=== PATIENT | female | born 1945 | race Caucasian/White ===

== ENCOUNTER 2017-07-05 17:17 | Emergency (ER) | payer MEDICARE ==
[2017-07-05 17:33] VITALS: BP 138/66
--- NOTE | 2017-07-05 18:02 | UC ---
Dental HPI - HPI Summary HPI Summary: pt reports that the right side of her tongue was tender this morning . Pt then ate lunch, fell asleep after luncha nd woke tieht right side of tongue swollen and tender. Denies biting or injuring tongue. Pt denies SOB or difficulty breathing - History of Current Complaint Chief Complaint: UCGI Stated Complaint: SWOLLEN TONGUE Time Seen by Provider: 07/05/17 17:50 Hx Obtained From: Patient ?: No Onset/Duration: Sudden Onset, Still Present Severity: Mild Related History: Swelling - right side of tongue - Allergies/Home Medications Allergies/Adverse Reactions: Allergies Allergy/AdvReac Type Severity Reaction Status Date / Time Adhesive Tape Allergy Intermediate Itching Verified 08/06/16 12:18 Codeine AdvReac Severe Headache Verified 08/06/16 12:18 Oxycodone AdvReac Nausea Verified 08/06/16 12:18 SCALLOPS Allergy MIGRAINES Uncoded 08/06/16 12:18 unnamed narcotic med given Allergy Vomiting Uncoded 07/05/17 17:36 after [place] Home Medications: Home Medications Acetaminophen TAB* [Tylenol TAB*] 1,000 mg PO Q12H PRN 07/05/17 [History Confirmed 07/05/17] Fluocinolone 0.025% CM(NF) [Synalar 0.025% CREAM(NF)] 1 applic .SEE ORDER DAILY 07/05/17 [History Confirmed 07/05/17] Fluticasone/Vilanterol MDI(NF) [Breo Ellipta MDI 100/25(NF)] 1 puff INH DAILY [History Confirmed 07/05/17] PMH/Surg Hx/FS Hx/Imm Hx Previously Healthy: Yes - Surgical History Surgical History: Yes Surgery Procedure, Year, and Place: CATARACT SX. APPY. FEMORAL HERNIA REPAIR. HEMORRHOIDECTOMY. ARTHROSCOPIC SX--KNEE. [place] [facility] [place] - Family History Known Family History: Positive: Unknown Family History: no cardio vascular issue in family lineage - Social History Occupation: Retired Lives: Alone Alcohol Use: None Alcohol Amount: MIGHT AT HOLIDAY TIME HAVE A VERY SMALL AMOUNT. Substance Use Type: None Smoking Status (MU): Heavy Every Day Tobacco Smoker Type: Cigarettes Amount Used/How Often: 1 PPD Length of Time of Smoking/Using Tobacco: 63 Have You Smoked in the Last Year: Yes - Immunization History Most Recent Influenza Vaccination: 2014 Most Recent Tetanus Shot: WITHIN 10 YEARS Most Recent Pneumonia Vaccination: 03/21 Review of Systems Constitutional: Negative Skin: Negative Eyes: Negative ENT: Other - tender , swollen left alistair eof tongue Respiratory: Negative Cardiovascular: Negative Gastrointestinal: Negative Genitourinary: Negative Motor: Negative Neurovascular: Negative Musculoskeletal: Negative Neurological: Negative Psychological: Negative Is Patient Immunocompromised?: No All Other Systems Reviewed And Are Negative: Yes Physical Exam Triage Information Reviewed: Yes Appearance: Well-Appearing Vital Signs: Initial Vital Signs Temp 99.3 F 07/05/17 17:23 Pulse 92 07/05/17 17:23 Resp 18 07/05/17 17:23 BP 138/66 07/05/17 17:23 Pulse Ox 96 07/05/17 17:23 Vital Signs Reviewed: Yes Eye Exam: Normal ENT Exam: Other ENT: Positive: Other: - right sdie of tongue mild swelling and dime size ulceration to mid, right alistair ebase of tongue Dental Exam: Other - mild swelling right side tongue, small yaw size white ulceration noted right alistair ebase mid tongue Neck exam: Normal Respiratory Exam: Normal Cardiovascular Exam: Normal Musculoskeletal Exam: Normal Neurological Exam: Normal Psychological Exam: Normal Skin Exam: Other - see comments on tongue Dental Complaint Course/Dx - Differential Dx/Diagnosis Differential Diagnosis/Dx: Other - canker sore tongue Provider Diagnoses: canker sore tongue. tongue cancer? Discharge - Discharge Plan Condition: Stable Disposition: HOME Prescriptions: Lidocaine 2% VISCOUS* [Xylocaine 2% Viscous*] 15 ml SWISH SPIT Q4H PRN #1 btl PRN Reason: Pain ValACYclovir (*) [Valtrex 500 mg (*)] 500 mg PO Q8H #21 tab predniSONE TAB* [Deltasone TAB*] 20 mg PO DAILY #3 tab Patient Education Materials: Canker Sores (ED) Referrals: Herb Patel MD [Primary Care Provider] -
== END 2017-07-05 18:17 | disposition home or self-care (01) ==
LOC: UCCORT 17:17
DX: K12.0 Recurrent oral aphthae (principal); Z88.5 Allergy status to narcotic agent; Z91.013 Allergy to seafood; F17.210 Nicotine dependence, cigarettes, uncomplicated
CPT/HCPCS: 99212; G0463

== ENCOUNTER 2017-09-13 11:02 | Emergency (ER) | payer MEDICARE ==
[2017-09-13 11:30] VITALS: BP 139/84
--- NOTE | 2017-09-13 12:04 | UC ---
Abdominal Pain Female HPI - HPI Summary HPI Summary: 71 year old female with history of aneurysm has abdominal pain and knee p[ain for 1 week after fall. RLE pain and bruise distal to knee greater than left knee ; and upper abdominal pain onset one week ago s/p fall onto knees and onto belly when pulled by dog on leash. takes ASA 325 mg daily but not sure why. pain in the abdomen /10. has pain in the right leg as well. no weakness. no syncope. no HACKETT. [ End ] - History of Current Complaint Chief Complaint: UCAbdominalPain Stated Complaint: UPPER ABD PAIN/RIGHT KNEE INJURY Time Seen by Provider: 09/13/17 11:35 Hx Obtained From: Patient ?: No Onset/Duration: Sudden Onset Severity Initially: Mild Severity Currently: Moderate Radiates: No Character: Dull Aggravating Factor(s): Movement Allergies/Adverse Reactions: Allergies Allergy/AdvReac Type Severity Reaction Status Date / Time Adhesive Tape Allergy Intermediate Itching Verified 09/13/17 11:41 Codeine AdvReac Severe Headache Verified 09/13/17 11:41 Oxycodone AdvReac Nausea Verified 09/13/17 11:41 SCALLOPS Allergy MIGRAINES Uncoded 09/13/17 11:41 unnamed narcotic med given Allergy Vomiting Uncoded 09/13/17 11:41 after [place] Home Medications: Home Medications Acetaminophen [Acetaminophen Extra Stren] 1,000 mg PO Q12H PRN 09/13/17 [ History Confirmed 09/13/17] PMH/Surg Hx/FS Hx/Imm Hx Previously Healthy: Yes Endocrine History: Dyslipidemia Cardiovascular History: Hypertension - Surgical History Surgical History: Yes Surgery Procedure, Year, and Place: CATARACT SX. APPY. FEMORAL HERNIA REPAIR. HEMORRHOIDECTOMY. ARTHROSCOPIC SX--KNEE. bilateral knee replacements at [facility] [place] Dr. Biggs - Family History Known Family History: Positive: Unknown Family History: no cardio vascular issue in family lineage - Social History Occupation: Retired Alcohol Use: None Alcohol Amount: MIGHT AT HOLIDAY TIME HAVE A VERY SMALL AMOUNT. Substance Use Type: None Smoking Status (MU): Heavy Every Day Tobacco Smoker Type: Cigarettes Amount Used/How Often: 1 PPD Length of Time of Smoking/Using Tobacco: 63 Have You Smoked in the Last Year: Yes Cessation Counseling: Patient Advised to Stop - Immunization History Most Recent Influenza Vaccination: 2014 Most Recent Tetanus Shot: WITHIN 10 YEARS Most Recent Pneumonia Vaccination: 03/21 Review of Systems Skin: Bruising Gastrointestinal: Abdominal Pain Musculoskeletal: Arthralgia Psychological: Anxious All Other Systems Reviewed And Are Negative: No Physical Exam Triage Information Reviewed: Yes Appearance: Well-Appearing, No Pain Distress, Well-Nourished Vital Signs: Initial Vital Signs Temp 98.5 F 09/13/17 11:21 Pulse 98 09/13/17 11:21 Resp 22 09/13/17 11:21 BP 139/84 09/13/17 11:21 Vital Signs Reviewed: Yes Eye Exam: Normal ENT Exam: Normal Dental Exam: Normal Neck exam: Normal Neck: Positive: 1 Respiratory Exam: Normal Cardiovascular Exam: Normal Abdominal Exam: Normal Abdomen Description: Positive: No Organomegaly, Soft, Other: - mild RUQ pain to palpation. Negative: CVA Tenderness (R), CVA Tenderness (L), Distended, Guarding, Hernia @ Bowel Sounds: Positive: Present Musculoskeletal Exam: Normal Neurological Exam: Normal Psychological Exam: Normal Skin Exam: Normal Skin: Positive: Other - right anterior tib/fib about 5 cm distal to the knee with mild swelling and bruising. Diagnostics - Laboratory Diagnostic Studies Completed/Ordered: IMPRESSION: ATHEROSCLEROSIS WITH DIFFUSE ECTASIA OF THE ABDOMINAL AORTA. IMPRESSION: 1. STATUS POST RIGHT KNEE ARTHROPLASTY. 2. PERIPHERAL ARTERIAL DISEASE. Abd Pain Female Course/Dx - Course Course Of Treatment: 12:30 - I told patient she should go to ED for labs and further work up she is not willing and does not want to go to or trust [facility] [place] she likes but too far away and does not want to go to ED. we will order imaging and if no acute findings can discuss discharge but she is aware we can not perform stat labs and this setting can miss a potential internal bleed and she is aware of the risks of missing such. 12:51 - xray and ct neg. told her of results of 3.1 cm aneurysm. she declined ed. go to ed if any concerns. - Differential Dx/Diagnosis Differential Diagnosis: Other - AAA rupture. GI bleed. leg fracture Provider Diagnoses: abdominal pain and right knee pain after fall Discharge - Discharge Plan Condition: Good Disposition: HOME Patient Education Materials: Abdominal Pain (ED), Knee Pain (ED) Referrals: Herb Patel MD [Primary Care Provider] - 1 Day Additional Instructions: Your xray and cat scan were not showing any acute concerns. please discuss the results with your primary care doctor. if your symptoms do not resolve or worsen go to the ED please IMPRESSION: ATHEROSCLEROSIS WITH DIFFUSE ECTASIA OF THE ABDOMINAL AORTA
--- NOTE | 2017-09-13 12:30 | RAD ---
HISTORY: Right knee pain COMPARISONS: October 23, 2016 VIEWS: 4, Frontal, lateral, axial, and oblique views of the right knee FINDINGS: BONE DENSITY: Normal. BONES: The patient is status post right knee arthroplasty. There is no hardware failure or osteolysis. JOINTS: The patient is status post right knee arthroplasty. ALIGNMENT: There is no dislocation. SOFT TISSUES: There is peripheral arterial calcification OTHER FINDINGS: None. IMPRESSION: 1. STATUS POST RIGHT KNEE ARTHROPLASTY. 2. PERIPHERAL ARTERIAL DISEASE.
--- NOTE | 2017-09-13 12:37 | RAD ---
CLINICAL HISTORY: Right upper quadrant pain, epigastric pain COMPARISON: None relevant available time dictation TECHNIQUE: Multiple contiguous axial CT scans were obtained of the abdomen and pelvis, without intravenous contrast enhancement. Coronal and sagittal multiplanar reformations are submitted for review. Oral contrast was not administered. FINDINGS: The study is limited by the lack of intravenous contrast. This limits evaluation of the solid organs and vasculature. LUNG BASES: The lung bases are clear. LIVER: The liver is normal in shape, size, contour, and attenuation. BILE DUCTS: There is no intrahepatic or extrahepatic biliary dilatation. GALLBLADDER: The gallbladder is normal, without pericholecystic inflammatory change. PANCREAS: The pancreas is normal, without mass or ductal dilatation. SPLEEN: Normal in size and appearance. UPPER GI TRACT: Evaluation of the gastrointestinal tract is limited by incomplete gastric distention. The upper GI tract is unremarkable. SMALL BOWEL AND MESENTERY: The small bowel is normal in contour, course, and caliber. There is no obstruction or dilatation. COLON: The colon is normal in contour, course, caliber. There is no pericolonic inflammatory change. ADRENALS: Normal bilaterally. KIDNEYS: The kidneys are normal in shape, size, contour, and axis. There is no hydronephrosis or nephrolithiasis. BLADDER: The bladder is incompletely distended but is grossly normal. PELVIC ORGANS: The uterus and adnexa are grossly normal for technique. AORTA: There is diffuse ectasia of the abdominal aorta with extensive atherosclerosis. The aorta measures up to 3.1 cm in transverse diameter. IVC: Unremarkable LYMPH NODES: There is no lymphadenopathy by size criteria. ABDOMINAL WALL: There is no evidence for abdominal wall hernia. BONES AND SOFT TISSUES: Degenerative changes are noted most pronounced at L4-L5. OTHER: None IMPRESSION: ATHEROSCLEROSIS WITH DIFFUSE ECTASIA OF THE ABDOMINAL AORTA
== END 2017-09-13 12:59 | disposition home or self-care (01) ==
LOC: UCCORT 11:02
DX: M25.561 Pain in right knee (principal); R10.9 Unspecified abdominal pain; Z91.81 History of falling; I70.0 Atherosclerosis of aorta; I77.811 Abdominal aortic ectasia; Z96.651 Presence of right artificial knee joint; I73.9 Peripheral vascular disease, unspecified; Z88.5 Allergy status to narcotic agent; I10 Essential (primary) hypertension; F17.210 Nicotine dependence, cigarettes, uncomplicated; Z86.79 Personal history of other diseases of the circulatory system
CPT/HCPCS: 74176; 81003; 87086; 99211; G0463

== ENCOUNTER 2018-03-12 19:43 | Emergency (ER) | payer MEDICARE ==
[2018-03-12 20:21] VITALS: BP 129/77
[2018-03-12] MEDS ORDERED: predniSONE TAB* 20 MG PO ONE (20:42)
[2018-03-12] MEDS ORDERED: LoraTADine TAB(NF) 10 MG TAB (AUTOSUB to CETIRIZINE) PO ONE (20:45)
--- NOTE | 2018-03-12 20:51 | UC ---
UC General HPI - HPI Summary HPI Summary: Pt c/oi sudden onset of upper and lower lip swelling and left side facial cheek swelling. Pt denies coming into contact with any known allergens. Pt has a long use history of ramipril. Denies difficulty breathing. Denies unilateral weakness or headache. - History of Current Complaint Chief Complaint: UCGeneralIllness Stated Complaint: FACIAL SWELLING Time Seen by Provider: 03/12/18 20:21 Hx Obtained From: Patient Onset/Duration: Sudden Onset, Lasting Hours, Still Present Timing: Constant Onset Severity: Mild Current Severity: Moderate Pain Intensity: 0 Associated Signs & Symptoms: Positive: Edema - Allergy/Home Medications Allergies/Adverse Reactions: Allergies Allergy/AdvReac Type Severity Reaction Status Date / Time Adhesive Tape Allergy Intermediate Itching Verified 03/12/18 20:08 codeine Allergy Headache Verified 03/12/18 20:08 oxycodone Allergy Nausea Verified 03/12/18 20:08 SCALLOPS Allergy MIGRAINES Uncoded 03/12/18 20:08 unnamed narcotic med given Allergy Vomiting Uncoded 03/12/18 20:08 after [place] Home Medications: Home Medications Aspirin EC TAB* [Ecotrin EC Low Dose 81 MG*] 81 mg DAILY 03/12/18 [History Confirmed 03/12/18] diPHENhydraMINE PO* [Benadryl PO 25 MG TAB*] 50 mg BID PRN 03/12/18 [History Confirmed 03/12/18] PMH/Surg Hx/FS Hx/Imm Hx Previously Healthy: Yes Cardiovascular History: Hypertension - Surgical History Surgical History: Yes Surgery Procedure, Year, and Place: CATARACT SX. APPY. FEMORAL HERNIA REPAIR. HEMORRHOIDECTOMY. ARTHROSCOPIC SX--KNEE. bilateral knee replacements at [facility] [place] Dr. Biggs - Family History Known Family History: Positive: Unknown Family History: no cardio vascular issue in family lineage - Social History Occupation: Retired Lives: Alone Alcohol Use: None Alcohol Amount: MIGHT AT HOLIDAY TIME HAVE A VERY SMALL AMOUNT. Substance Use Type: None Smoking Status (MU): Heavy Every Day Tobacco Smoker Type: Cigarettes Amount Used/How Often: 1 PPD Length of Time of Smoking/Using Tobacco: 63 Have You Smoked in the Last Year: Yes - Immunization History Most Recent Influenza Vaccination: 2014 Most Recent Tetanus Shot: WITHIN 10 YEARS Most Recent Pneumonia Vaccination: 03/21 Review of Systems Constitutional: Negative Skin: Negative Eyes: Negative ENT: Other - lip swelling Respiratory: Negative Cardiovascular: Negative Gastrointestinal: Negative Genitourinary: Negative Motor: Negative Neurovascular: Negative Musculoskeletal: Negative Neurological: Negative Psychological: Negative Is Patient Immunocompromised?: No All Other Systems Reviewed And Are Negative: Yes Physical Exam Triage Information Reviewed: Yes Appearance: Well-Appearing Vital Signs: Initial Vital Signs Temp 98.4 F 03/12/18 20:13 Pulse 80 03/12/18 20:13 Resp 18 03/12/18 20:13 BP 129/77 03/12/18 20:13 Pulse Ox 96 03/12/18 20:13 Vital Signs Reviewed: Yes Eye Exam: Normal ENT Exam: Other ENT: Positive: Other - lip swelling Neck exam: Normal Respiratory Exam: Normal Cardiovascular Exam: Normal Musculoskeletal Exam: Other Musculoskeletal: Positive: Edema @ - lip swelling left side facial swelling Neurological Exam: Normal Psychological: Positive: Normal Response To Family Skin Exam: Normal Course/Dx - Course Course Of Treatment: I disucssed with the pt the need to follow up with her PCP tomorrow. - Differential Dx - Multi-Symptom Differential Diagnoses: Other - angio edema Provider Diagnoses: angio edema. allergic reaction Discharge - Sign-Out/Discharge Documenting (check all that apply): Discharge/Admit/Transfer - Discharge Plan Condition: Stable Disposition: HOME Prescriptions: predniSONE TAB* [Deltasone 20 MG TAB*] 20 mg PO DAILY #3 tab Patient Education Materials: Angioedema (ED), General Allergic Reaction (ED) Referrals: Herb Patel MD [Primary Care Provider] - As Soon As Possible Additional Instructions: Please follow up with your PCP as soon as possible. Please begin taking a 24 hour, non drowsy antihistamine such as Anya, Zyrtec, or Claritin. - Billing Disposition and Condition Condition: STABLE Disposition: Home
== END 2018-03-12 21:03 | disposition home or self-care (01) ==
LOC: UCCORT 19:43
DX: T78.3XXA Angioneurotic edema, initial encounter (principal); T78.40XA Allergy, unspecified, initial encounter; Z88.9 Allergy status to unspecified drugs, medicaments and biological substances; Z88.5 Allergy status to narcotic agent; Z91.013 Allergy to seafood; Z91.048 Other nonmedicinal substance allergy status; I10 Essential (primary) hypertension; F17.210 Nicotine dependence, cigarettes, uncomplicated
CPT/HCPCS: 99212; A9270-GY; G0463; J7512